=== PATIENT | male | born 1955 | race Caucasian/White ===

== ENCOUNTER → 2018-07-17 16:58 | Outpatient (CLI) | payer OTHER, SELFPAY ==
--- NOTE | 2018-07-17 17:13 | EKG12_ITS ---
Test Reason : PRE OP Blood Pressure : / mmHG Vent. Rate : 056 BPM Atrial Rate : 056 BPM P-R Int : 158 ms QRS Dur : 094 ms QT Int : 416 ms P-R-T Axes : 043 035 022 degrees QTc Int : 401 ms Sinus bradycardia Otherwise normal ECG Confirmed by KARIME CURRY, BOO [id number]), editor managing director SRIKANTH GAINES ([id number] on 07/19/2018 10:26:36 AM Referred By: Jackson Alanis Confirmed By:BOO SCHAFFER MD
[2018-07-17 17:18] LABS: Hematocrit 36.5 % (40-54); Mean Corp Hgb Conc 32.9 g/gl (32-36); Mean Corpuscular Hgb 24.4 pg (27.0-32.0); Mean Corpuscular Volume 74.2 fL (80-94); Mean Platelet Vol. 10.6 fl (6.2-12.0); Platelet Count 191 K/mm3 (150-450); RBC Distribution Width CV 15.7 % (11.6-14.6); RBC Distribution Width SD 42.1 fl (35.1-43.9); Red Blood Count 4.92 M/mm3 (4.6-6.2); White Blood Count 5.3 K/mm3 (4.4-11.0)
[2018-07-17 17:19] LABS: Scan Indicated on CBC? Y/N NO
[2018-07-17 17:36] LABS: Anion Gap 6 (5-15); BUN 11 mg/dL (7-18); BUN/Creat Ratio 10.9 RATIO (10-20); Calcium,Total 8.6 mg/dL (8.5-10.1); Chloride 106 mmol/L (98-107); Creatinine, Serum 1.01 mg/dL (0.70-1.30); EST Glomerular Filtration Rate 80 mL/min (>60); Est Glom Filt Rate - Afr Amer 96 mL/min (>60); Glucose 113 mg/dL (74-106); Potassium 3.7 mmol/L (3.5-5.1); Sodium Level 141 mmol/L (136-145)
== END ==
PROVIDERS: Family Provider Family Medicine; PCP Family Medicine; Referring Provider Otolaryngology; Visit Provider Otolaryngology
DX: Z01.818 Encounter for other preprocedural examination (principal)
CPT/HCPCS: 36415; 80048; 85027; 93005